=== PATIENT | male | born 1970 ===

== ENCOUNTER 2017-02-28 22:00 | Observation (INO) | payer MEDICAID ==
[2017-02-28 22:07] VITALS: BMI 60.5
--- NOTE | 2017-02-28 22:25 | ED PDOC ---
Arrival/HPI - General Chief Complaint: Abdominal Pain Time Seen by Provider: 02/28/17 22:20 Historian: Patient - History of Present Illness Narrative History of Present Illness (Text): 02/28/17 22:24 Dez Weiss is a 46 year old male, with no significant past medical history , who presents to the Emergency department complaining of RUQ pain radiating to right flank for 1 month. Patient states pain is constant and notes some nausea after eating. Patient states he was seen at [facility] weeks for similar complaint and admitted for further evaluation. Patient denies any fever, chills, chest pain, shortness of breath, vomiting, diarrhea, urinary symptoms, back pain, neck pain, headache, dizziness, or any other complaints. No PMD Time/Duration: Other (1 month) Symptom Onset: Gradual Symptom Course: Unchanged Activities at Onset: Rest, Light Context: Home Past Medical History - Provider Review Nursing Documentation Reviewed: Yes - Cardiac Hx Cardiac Disorders: No - Pulmonary Hx Respiratory Disorders: No - Neurological Hx Neurological Disorder: No - HEENT Hx HEENT Disorder: No - Renal Hx Renal Disorder: No - Endocrine/Metabolic Hx Endocrine Disorders: No - Hematological/Oncological Hx Blood Disorders: No - Integumentary Hx Dermatological Disorder: No - Musculoskeletal/Rheumatological Hx Musculoskeletal Disorders: No - Gastrointestinal Hx Gastrointestinal Disorders: Yes Other/Comment: acid reflux - Genitourinary/Gynecological Hx Genitourinary Disorders: No - Psychiatric Hx Psychophysiologic Disorder: No Hx Substance Use: Yes (marijuana) - Surgical History Hx Appendectomy: Yes Family/Social History - Physician Review Nursing Documentation Reviewed: Yes Family/Social History: No Known Family HX Smoking Status: Heavy Smoker > 10 Cigarettes Daily Hx Alcohol Use: Yes Frequency of alcohol use: Socially Hx Substance Use: Yes (marijuana) Allergies/Home Meds Allergies/Adverse Reactions: Allergies Penicillins Allergy (Verified 02/28/17 22:05) ANAPHYLAXIS shellfish derived Allergy (Verified 02/28/17 22:05) ANAPHYLAXIS Home Medications: Home Meds Medication Instructions Recorded Confirmed Omeprazole Magnesium [Prilosec Otc] 20 mg PO DAILY 02/28/17 02/28/17 Review of Systems - Physician Review All systems were reviewed & negative as marked: Yes - Review of Systems Constitutional: Normal. absent: Fevers Eyes: Normal ENT: Normal Respiratory: Normal. absent: SOB, Cough Cardiovascular: Normal. absent: Chest Pain Gastrointestinal: Abdominal Pain, Nausea. absent: Diarrhea, Vomiting Genitourinary Male: Normal. absent: Dysuria, Frequency, Hematuria, Urinary Output Changes Musculoskeletal: Back Pain. absent: Neck Pain Skin: Normal. absent: Rash Neurological: Normal. absent: Headache, Dizziness Endocrine: Normal Hemo/Lymphatic: Normal Psychiatric: Normal Physical Exam Vital Signs Reviewed: Yes Vital Signs Temp Pulse Resp BP Pulse Ox 03/01/17 01:15 88 18 136/88 95 02/28/17 22:06 98.9 F 109 H 22 98 Temperature: Afebrile Blood Pressure: Normal Pulse: Regular Respiratory Rate: Normal Appearance: Positive for: Well-Appearing, Non-Toxic, Comfortable Pain Distress: None Mental Status: Positive for: Alert and Oriented X 3 - Systems Exam Head: Present: Atraumatic, Normocephalic Pupils: Present: PERRL Extroacular Muscles: Present: EOMI Conjunctiva: Present: Normal Mouth: Present: Moist Mucous Membranes Neck: Present: Normal Range of Motion Respiratory/Chest: Present: Clear to Auscultation, Good Air Exchange. No: Respiratory Distress, Accessory Muscle Use Cardiovascular: Present: Regular Rate and Rhythm, Normal S1, S2. No: Murmurs Abdomen: Present: Tenderness (RUQ tenderness), Distention (Globus abdomen), Normal Bowel Sounds. No: Peritoneal Signs Upper Extremity: Present: Normal Inspection. No: Cyanosis, Edema Lower Extremity: Present: Normal Inspection. No: Edema Neurological: Present: GCS=15, CN II-XII Intact, Speech Normal Skin: Present: Warm, Dry, Normal Color. No: Rashes Psychiatric: Present: Alert, Oriented x 3, Normal Insight, Normal Concentration Medical Decision Making ED Course and Treatment: 02/28/17 22:24 Impression: 46 year old male complaining of RUQ pain radiating to right flank for 1 month. Plan: -- EKG -- CXR -- US Abdomen -- Labs, lipase -- IV fluids -- Toradol -- Reassess and disposition Progress Notes: 02/28/17 23:01 Reviewed EKG, NSR at [address]-segment elevations or depressions, no T-wave inversions, normal intervals. 02/28/17 23:56 Reviewed Chest X-ray, shows no active disease. 03/01/17 00:40 Reviewed sono, US Abdomen shows: Severely limited study related to patient body habitus. Liver dimensions as above, noting that these are statistically deemed unlikely, favor that measurements reflect artifact. Liver is increased in echogenicity, statistically most likely cause hepatic steatosis . No gallstones demonstrated. Unable to evaluate the common bile duct or pancreas. Favor that there is no hydronephrosis or stone of either kidney noting limitations. CT Abdomen and Pelvis with IV contrast ordered. 03/01/17 02:09 CT Abdomen and Pelvis shows: Please note that suboptimal contrast opacification and poor x-ray penetration greatly limit evaluation of the parenchymal organs, with absence of oral contrast limiting evaluation of the GI tract. Advise correlation for airspace disease at the right lung base. Kidneys as above, noting findings which are in the left kidney opposite the reported site of symptoms, please correlate for infection, there is incomplete evaluation of the findings on the present study. 03/01/17 02:15 Case discussed with medical lab technologist national van owner operator, who is aware and agrees with plan. House physician paged. 03/01/17 02:[address] Nava, who is aware and agrees with plan. Accepts pt in to hospitalist service. Pt will go to [facility] observation for intractable abdominal pain. - Lab Interpretations Lab Results: 02/28/17 22:43 02/28/17 22:43 Lab Results 02/28/17 22:43: WBC 9.8, RBC 5.32, Hgb 15.7, Hct 46.1, MCV 86.7, MCH 29.5, MCHC 34.1, RDW 13.9, Plt Count 369, MPV 10.3, Sodium 140, Potassium 4.0, Chloride 102 , Carbon Dioxide 28, Anion Gap 14, BUN 21, Creatinine 1.0, Est GFR ( Amer ) > 60, Est GFR (Non-Af Amer) > 60, Random Glucose 92, Calcium 9.1, Total Bilirubin 0.7, AST 37, ALT 67 H, Alkaline Phosphatase 119, Total Protein 8.0, Albumin 4.0, Globulin 4.0, Albumin/Globulin Ratio 1.0 L, Lipase 41 I have reviewed the lab results: Yes - RAD Interpretation Narrative RAD Interpretations (Text): Chest X-ray shows no active disease. US Abdomen shows: Limitations: There is a technologist note that the study was greatly limited by patient body habitus. Liver: The liver is measured at 33 x 21 cm, noting that these dimensions are statistically considered unlikely, it is favored that this is artifactual. The liver appears echogenic, statistically this is most likely related to hepatic steatosis Gallbladder: Limited evaluation of the gallbladder, no gallstones are identified. It was not possible to measure the gallbladder wall Common bile duct: The common bile duct could not be visualized with certainty. Pancreas: The pancreas was not visualized. Kidneys: The right kidney is documented with severe limitations, favored to measure approximately 10 x 6 x 7 cm, without evidence of hydronephrosis. Left kidney measures 12.5 x 6.4 x 6.7 cm with no hydronephrosis or stone identified. Spleen: Spleen is not enlarged, the study does not permit detailed evaluation for focal findings in the spleen. Aorta: Not evaluated noting limitations from body habitus Inferior vena cava:Not evaluated noting limitations from body habitus IMPRESSION: Severely limited study related to patient body habitus. Liver dimensions as above, noting that these are statistically deemed unlikely, favor that measurements reflect artifact. Liver is increased in echogenicity, statistically most likely cause hepatic steatosis . No gallstones demonstrated. Unable to evaluate the common bile duct or pancreas. Favor that there is no hydronephrosis or stone of either kidney noting limitations. Lower thorax: Air in the esophagus in keeping with reflux. Small hiatus hernia. Lung bases with patchy atelectatic changes right greater than left, cannot exclude some mild airspace disease of the right lower lobe although findings may reflect atelectasis. No pleural effusion is seen. Heart size does not appear enlarged. ABDOMEN: Liver: The liver is prominent, approximately 21 cm cephalocaudal. There is hepatic steatosis. Gallbladder and bile ducts: The gallbladder is mildly distended. No calcified stones. No ductal dilation. Pancreas: Unremarkable. No mass. No ductal dilation. Spleen: Unremarkable. No splenomegaly. Adrenals: Unremarkable. No mass. Kidneys and ureters: There is cortical irregularity of the left kidney suggested series 2 image 112, with focal abnormality measuring approximately 17 mm, differential includes pyelonephritis, cortical infarction, other pathology cannot be excluded on this limited study. extensive artifacts greatly limit evaluation for ureteral stone, noting that there is no hydronephrosis of either kidney. Stomach and bowel: The included portions of the GI tract shows scattered diverticuli, no findings to suggest bowel obstruction or acute diverticulitis within limits of the examination. Appendix: No findings to suggest acute appendicitis. PELVIS: Bladder: Configuration suggesting pelvic lipomatosis causing narrowing of the bladder No mass. Reproductive: There are scattered coarse calcifications in the prostate gland which measures 4.2 cm. ABDOMEN and PELVIS: Intraperitoneal space: Related to x-ray penetration, there is limited detail. Related to partial cutoff of the anterior abdominal wall on the images presented, there is some limitation to evaluation for free air. No significant fluid collection. Bones/joints: Bony structures without fracture comment degenerative spine changes are seen. No dislocation. Soft tissues: Unremarkable noting that they are incompletely imaged, please see above Vasculature: No abdominal aortic aneurysm. Atherosclerotic change most prominent at the origin of the left renal artery. Lymph nodes: Unremarkable. No enlarged lymph nodes. IMPRESSION: Please note that suboptimal contrast opacification and poor x-ray penetration greatly limit evaluation of the parenchymal organs, with absence of oral contrast limiting evaluation of the GI tract. Advise correlation for airspace disease at the right lung base. Kidneys as above, noting findings which are in the left kidney opposite the reported site of symptoms, please correlate for infection, there is incomplete evaluation of the findings on the present study. Radiology Orders: 02/28/17 22:25 CHEST PORTABLE [RAD] Stat ABDOMEN COMPLETE [US] Stat 03/01/17 00:40 ABD & PELVIS IV CONTRAST ONLY [CT] [employer]: ED Physician, Radiologist - EKG Interpretation EKG Interpretation (Text): EKG: Ordered, reviewed, and independently interpreted the EKG. Rate : 83 BPM Rhythm : NSR Interpretation : No ST-segment elevations or depressions, no T-wave inversions, normal intervals. Comparison : No previous EKG for comparison. Interpreted by ED Physician: Yes Type: 12 lead EKG - Medication Orders Current Medication Orders: Heparin Sodium (Porcine) (Heparin) 5,000 units SC Q12 EPHRAIM PRN Reason: Protocol Sodium Chloride (Sodium Chloride 0.9%) 1,000 mls @ 100 mls/hr IV .Q10H EPHRAIM Last Admin: 02/28/17 22:50 Dose: 100 MLS/HR eMAR Start Stop Document 02/28/17 22:50 SB (Rec: 02/28/17 22:50 SB [id number]) Intravenous Solution Start Date 02/28/17 Start Time 22:50 End Date 02/28/17 Morphine Sulfate (Morphine) 4 mg IVP STAT STA Stop: 03/01/17 02:22 Morphine Sulfate (Morphine) 2 mg IVP Q4H PRN PRN Reason: Pain, severe (8-10) Pantoprazole Sodium (Protonix Ec Tab) 40 mg PO ACB EPHRAIM Discontinued Medications Iohexol (Omnipaque 350 100 Ml) Confirm Administered Dose 350 mg .ROUTE .STK-MED ONE Stop: 03/01/17 01:06 Ketorolac Tromethamine (Toradol) 30 mg IVP ONCE ONE Stop: 02/28/17 22:27 Last Admin: 02/28/17 22:49 Dose: 30 MG IVP Administration Document 02/28/17 22:49 SB (Rec: 02/28/17 22:50 SB [id number]) Charges for Administration # of IVP Administrations 1 - Scribe Statement The provider has reviewed the documentation as recorded by the Maude Wong Provider Attestation: All medical record entries made by the Isaiiblove were at my direction and personally dictated by me. I have reviewed the chart and agree that the record accurately reflects my personal performance of the history, physical exam, medical decision making, and the department course for this patient. I have also personally directed, reviewed, and agree with the discharge instructions and disposition. Disposition/Present on Arrival - Present on Arrival Any Indicators Present on Arrival: No History of DVT/PE: No History of Uncontrolled Diabetes: No Urinary Catheter: No History of Decub. Ulcer: No History Surgical Site Infection Following: None - Disposition Have Diagnosis and Disposition been Completed?: Yes Diagnosis: Intractable abdominal pain Disposition: HOSPITALIZED Disposition Time: 02:25 Condition: STABLE
[2017-02-28] MEDS: Sodium Chloride 0.9% 1,000 ML IV SCH (22:50)
[2017-02-28 22:57] LABS: HEMATOCRIT 46.1 % (42.0-52.0); MEAN CELL VOLUME 86.7 fL (80.0-105.0); MEAN CORPUSCULAR HEMOGLOBIN 29.5 pg (25.0-35.0); MEAN CORPUSCULAR HGB CONC 34.1 g/dl (31.0-37.0); MEAN PLATELET VOLUME 10.3 fl (7.0-11.0); RED CELL DISTRIBUTION WIDTH 13.9 % (11.5-14.5); WHITE BLOOD COUNT 9.8 10^3/ul (4.5-11.0)
[2017-02-28 23:04] LABS: ALKALINE PHOSPHATASE 119 U/L (38-133); ALT/SGPT 67 U/L (7-56); AST/SGOT 37 U/L (15-59); BILIRUBIN,TOTAL 0.7 mg/dL (0.2-1.3); BLOOD UREA NITROGEN 21 mg/dL (7-21); CALCIUM 9.1 mg/dL (8.4-10.5); CARBON DIOXIDE 28 mmol/L (21-33); CHLORIDE 102 mmol/L (98-107); GFR AFRICAN-AMERICAN > 60; GLUCOSE,RANDOM 92 mg/dL (70-110); LIPASE 41 U/L (23-300); SODIUM 140 mmol/L (132-148)
--- NOTE | 2017-03-01 00:02 | US ---
EXAM: US Abdomen Complete CLINICAL HISTORY: 46 years old, male; Pain; Abdominal pain; Generalized TECHNIQUE: Real-time ultrasound of the abdomen (complete) with image documentation. EXAM DATE/TIME: Exam ordered 02/28/2017 10:25 PM COMPARISON: No relevant prior studies available. FINDINGS: Limitations: There is a technologist note that the study was greatly limited by patient body habitus. Liver: The liver is measured at 33 x 21 cm, noting that these dimensions are statistically considered unlikely, it is favored that this is artifactual. The liver appears echogenic, statistically this is most likely related to hepatic steatosis Gallbladder: Limited evaluation of the gallbladder, no gallstones are identified. It was not possible to measure the gallbladder wall Common bile duct: The common bile duct could not be visualized with certainty. Pancreas: The pancreas was not visualized. Kidneys: The right kidney is documented with severe limitations, favored to measure approximately 10 x 6 x 7 cm, without evidence of hydronephrosis. Left kidney measures 12.5 x 6.4 x 6.7 cm with no hydronephrosis or stone identified. Spleen: Spleen is not enlarged, the study does not permit detailed evaluation for focal findings in the spleen. Aorta: Not evaluated noting limitations from body habitus Inferior vena cava:Not evaluated noting limitations from body habitus IMPRESSION: Severely limited study related to patient body habitus. Liver dimensions as above, noting that these are statistically deemed unlikely, favor that measurements reflect artifact. Liver is increased in echogenicity, statistically most likely cause hepatic steatosis . No gallstones demonstrated. Unable to evaluate the common bile duct or pancreas. Favor that there is no hydronephrosis or stone of either kidney noting limitations.
[2017-03-01] MEDS ORDERED: Iohexol 350 MG/100 ML VIAL ONE (01:05)
--- NOTE | 2017-03-01 02:08 | CT ---
EXAM: CT Abdomen and Pelvis With Intravenous Contrast CLINICAL HISTORY: 46 years old, male; Pain; Abdominal pain; Flank; Right TECHNIQUE: Axial computed tomography images of the abdomen and pelvis with intravenous contrast. CONTRAST: 96 mL of OMNI 350 administered intravenously. EXAM DATE/TIME: Exam ordered 03/01/2017 12:40 AM COMPARISON: US - ABDOMEN COMPLETE 02/28/2017 11:35:22 PM FINDINGS: This study was protocoled on site and performed as per site directions, the images were subsequently sent for review by radiology. Intravenous contrast was administered, however there is suboptimal opacification. Related to x-ray penetration, there is limited detail. Related to partial cutoff of the anterior abdominal wall on the images presented, there is some limitation to evaluation for free air. Lower thorax: Air in the esophagus in keeping with reflux. Small hiatus hernia. Lung bases with patchy atelectatic changes right greater than left, cannot exclude some mild airspace disease of the right lower lobe although findings may reflect atelectasis. No pleural effusion is seen. Heart size does not appear enlarged. ABDOMEN: Liver: The liver is prominent, approximately 21 cm cephalocaudal. There is hepatic steatosis. Gallbladder and bile ducts: The gallbladder is mildly distended. No calcified stones. No ductal dilation. Pancreas: Unremarkable. No mass. No ductal dilation. Spleen: Unremarkable. No splenomegaly. Adrenals: Unremarkable. No mass. Kidneys and ureters: There is cortical irregularity of the left kidney suggested series 2 image 112, with focal abnormality measuring approximately 17 mm, differential includes pyelonephritis, cortical infarction, other pathology cannot be excluded on this limited study. extensive artifacts greatly limit evaluation for ureteral stone, noting that there is no hydronephrosis of either kidney. Stomach and bowel: The included portions of the GI tract shows scattered diverticuli, no findings to suggest bowel obstruction or acute diverticulitis within limits of the examination. Appendix: No findings to suggest acute appendicitis. PELVIS: Bladder: Configuration suggesting pelvic lipomatosis causing narrowing of the bladder No mass. Reproductive: There are scattered coarse calcifications in the prostate gland which measures 4.2 cm. ABDOMEN and PELVIS: Intraperitoneal space: Related to x-ray penetration, there is limited detail. Related to partial cutoff of the anterior abdominal wall on the images presented, there is some limitation to evaluation for free air. No significant fluid collection. Bones/joints: Bony structures without fracture comment degenerative spine changes are seen. No dislocation. Soft tissues: Unremarkable noting that they are incompletely imaged, please see above Vasculature: No abdominal aortic aneurysm. Atherosclerotic change most prominent at the origin of the left renal artery. Lymph nodes: Unremarkable. No enlarged lymph nodes. IMPRESSION: Please note that suboptimal contrast opacification and poor x-ray penetration greatly limit evaluation of the parenchymal organs, with absence of oral contrast limiting evaluation of the GI tract. Advise correlation for airspace disease at the right lung base. Kidneys as above, noting findings which are in the left kidney opposite the reported site of symptoms, please correlate for infection, there is incomplete evaluation of the findings on the present study.
[2017-03-01] MEDS ORDERED: Morphine 4 mg/ml ISec IVP STA (02:21)
[2017-03-01] MEDS ORDERED: Morphine 2 mg/ml ISec IVP PRN (02:21)
--- NOTE | 2017-03-01 02:23 | CP.PCM.HP ---
<Lety Fernandez - Last Filed: 03/01/17 02:52> History of Present Illness - History of Present Illness History of Present Illness: This is a 46Y morbidly obese M with PMH of kidney stones who came to the ED for R sided flank pain for 1 month. He reports 2 weeks ago he went to [facility] [place] and was d /c with Percocet, but they did not find a diagnosis. He reports the pain is intermittent pressure that is worse with movement, coughing and sneezing. He has not had this pain before. Nothing makes the pain better. He denies having hematuria, dysuria, CP, SOB, n/v/d, numbness/tingling, fever or chills. Of note , patient does report waking up in the middle of the night from not breathing. He is homeless, so no one can report if he snores. PMH: Kidney stones PSH: Appendectomy (20yrs ago) Home meds: None All: Penicillin and shellfish (both anaphylaxis) SH: Smokes 1ppd x 20yrs, smokes marijuana, denies EtOH use FH: Father- of gastric cancer PMD: None Present on Admission - Present on Admission Any Indicators Present on Admission: No Review of Systems - Review of Systems Review of Systems: As per HPI Past Patient History - Past Social History Smoking Status: Heavy Smoker > 10 Cigarettes Daily Alcohol: None Drugs: Cannabis Home Situation {Lives}: Homeless - CARDIAC Hx Cardiac Disorders: No - PULMONARY Hx Respiratory Disorders: No - NEUROLOGICAL Hx Neurological Disorder: No - HEENT Hx HEENT Problems: No - RENAL Hx Chronic Kidney Disease: No - ENDOCRINE/METABOLIC Hx Endocrine Disorders: No - HEMATOLOGICAL/ONCOLOGICAL Hx Blood Disorders: No - INTEGUMENTARY Hx Dermatological Problems: No - MUSCULOSKELETAL/RHEUMATOLOGICAL Hx Musculoskeletal Disorders: No - GASTROINTESTINAL Hx Gastrointestinal Disorders: Yes Other/Comment: acid reflux - GENITOURINARY/GYNECOLOGICAL Hx Genitourinary Disorders: No - PSYCHIATRIC Hx Psychophysiologic Disorder: No Hx Substance Use: Yes (marijuana) - SURGICAL HISTORY Hx Appendectomy: Yes Meds Allergies/Adverse Reactions: Allergies Allergy/AdvReac Type Severity Reaction Status Date / Time Penicillins Allergy ANAPHYLAXIS Verified 02/28/17 22:05 shellfish derived Allergy ANAPHYLAXIS Verified 02/28/17 22:05 Physical Exam - Constitutional Appears: No Acute Distress Additional comments: Obese - Head Exam Head Exam: ATRAUMATIC, NORMAL INSPECTION, NORMOCEPHALIC - Eye Exam Eye Exam: Normal appearance Pupil Exam: NORMAL ACCOMODATION - ENT Exam ENT Exam: Mucous Membranes Moist - Neck Exam Neck exam: Positive for: Normal Inspection - Respiratory Exam Respiratory Exam: Clear to Auscultation Bilateral, NORMAL BREATHING PATTERN. absent: Rales, Rhonchi, Wheezes - Cardiovascular Exam Cardiovascular Exam: REGULAR RHYTHM, +S1, +S2. absent: Gallop, Rubs, Systolic Murmur - GI/Abdominal Exam GI & Abdominal Exam: Normal Bowel Sounds, Soft. absent: Mass, Rebound, Rigid, Tenderness - Extremities Exam Extremities exam: Positive for: pedal edema. Negative for: calf tenderness Additional comments: +2 pitting edema - Back Exam Back exam: NORMAL INSPECTION, tenderness (R flank to palpation ). absent: CVA tenderness (L), CVA tenderness (R) - Neurological Exam Neurological exam: Alert, CN II-XII Intact, Oriented x3 - Psychiatric Exam Psychiatric exam: Normal Affect, Normal Mood - Skin Skin Exam: Dry, Intact, Normal Color, Warm Results - Vital Signs Recent Vital Signs: Last Vital Signs Temp 98.9 F 02/28/17 22:06 Pulse 88 03/01/17 01:15 Resp 18 03/01/17 01:15 BP 136/88 03/01/17 01:15 Pulse Ox 95 03/01/17 01:15 - Labs Result Diagrams: 02/28/17 22:43 02/28/17 22:43 Labs: Laboratory Results - last 24 hr 02/28/17 22:43 WBC 9.8 RBC 5.32 Hgb 15.7 Hct 46.1 MCV 86.7 MCH 29.5 MCHC 34.1 RDW 13.9 Plt Count 369 MPV 10.3 Sodium 140 Potassium 4.0 Chloride 102 Carbon Dioxide 28 Anion Gap 14 BUN 21 Creatinine 1.0 Est GFR ( Amer) > 60 Est GFR (Non-Af Amer) > 60 Random Glucose 92 Calcium 9.1 Total Bilirubin 0.7 AST 37 ALT 67 H Alkaline Phosphatase 119 Total Protein 8.0 Albumin 4.0 Globulin 4.0 Albumin/Globulin Ratio 1.0 L Lipase 41 - EKG Data EKG Interpreted by: ER Physician EKG shows normal: Sinus rhythm Rate: Normal Assessment & Plan - Assessment and Plan (Free Text) Assessment: This is a 46Y morbidly obese male with PMH of kidney stones admitted for R sided flank pain. Plan: 1. R flank pain - r/o kidney stones, may be musculoskeletal - CT abd/pelvis showed some cortical irregularity on the L kidney, no hydronephrosis or stones seen. - Abdominal U/S was limited study due to body habitus. Hepatic steatosis. No hydronephrosis. No gallstones seen in GB, but not able to identify common bile duct or pancreas - Will check U/A and culture - will check lactate to r/o ischemia - Morphine prn pain 2. Morbid obesity - Will check HgbA1c and lipid panel 3. Sleep apnea - Recommend outpatient sleep study 4. Nicotine dependence - counseled on smoking cessation GI ppx: Protonix DVT ppx: Heparin SC Case seen, reviewed and discussed with attending. Beto Fernandez PGY1 - Date & Time Date: 03/01/17 Time: 02:23 <Aureliano Nava - Last Filed: 03/01/17 04:52> Results - Vital Signs Recent Vital Signs: Last Vital Signs Temp 98.9 F 02/28/17 22:06 Pulse 82 03/01/17 03:00 Resp 18 03/01/17 03:00 BP 128/62 03/01/17 03:00 Pulse Ox 95 03/01/17 03:00 - Labs Result Diagrams: 02/28/17 22:43 02/28/17 22:43 Attending/Attestation - Attestation I have personally seen and examined this patient.: Yes I have fully participated in the care of the patient.: Yes I have reviewed all pertinent clinical information: Yes Notes (Text): 03/01/17 04:51 Patient was seen when he was in the ER bed # 7. Agree with history, physical examination , assessment and plan.
[2017-03-01] MEDS ORDERED: Pantoprazole 40 mg EC Tab PO SCH (07:30)
[2017-03-01 08:03] LABS: CHOLESTEROL 155 mg/dL (130-200)
--- NOTE | 2017-03-01 08:28 | RAD ---
HISTORY: abdominal pain COMPARISON: No prior. FINDINGS: LUNGS: No active pulmonary disease. PLEURA: No significant pleural effusion identified, no pneumothorax apparent. CARDIOVASCULAR: Normal. OSSEOUS STRUCTURES: No significant abnormalities. VISUALIZED UPPER ABDOMEN: Normal. OTHER FINDINGS: None. IMPRESSION: No active disease.
[2017-03-01] MEDS: Sodium Chloride 0.9% 1,000 ML IV SCH ×2 (09:46→17:52)
[2017-03-01 12:43] LABS: URINE BILIRUBIN NEGATIVE (NEGATIVE); URINE BLOOD TRACE-INTACT (NEGATIVE); URINE GLUCOSE (UA) NEGATIVE (NEGATIVE); URINE KETONE NEGATIVE (NEGATIVE); URINE LEUKOCYTE ESTERASE NEGATIVE Leu/uL (NEGATIVE); URINE PROTEIN TRACE mg/dL (<30 mg/dL); URINE UROBILINOGEN 0.2 E.U./dL (<1 E.U./dL)
[2017-03-01 12:47] LABS: URINE APPEARANCE CLEAR (CLEAR); URINE COLOR YELLOW (YELLOW)
[2017-03-01 12:51] LABS: URINE BACTERIA MOD (NEG); URINE EPITHELIAL CELLS 0 - 2 /hpf (0-5); URINE WBC 0 - 2 /hpf (0-6)
[2017-03-01] MEDS ORDERED: Azithromycin 500MG/NS 250ml 250 ML IVPB STA (15:03)
--- NOTE | 2017-03-01 15:32 | CARD ---
APPROVED REPORT EKG Measurement Heart [id number] <Conclusion> Normal sinus rhythm Normal ECG
[2017-03-02 07:39] LABS: ADD MANUAL DIFF? NO
[2017-03-02 07:46] LABS: BASO # 0.01 K/mm3 (0.0-2.0); BASO % 0.2 % (0.0-3.0); EOS # 0.2 (0.0-0.7); EOS % 2.8 % (1.5-5.0); GRAN # 4.31 (1.4-6.5); GRAN % 67.8 % (50.0-68.0); HEMATOCRIT 43.4 % (42.0-52.0); LYMPH # 1.1 (1.2-3.4); LYMPH % 17.3 % (22.0-35.0); MEAN CELL VOLUME 87.5 fL (80.0-105.0); MEAN CORPUSCULAR HEMOGLOBIN 28.4 pg (25.0-35.0); MEAN CORPUSCULAR HGB CONC 32.5 g/dl (31.0-37.0); MEAN PLATELET VOLUME 10.1 fl (7.0-11.0); MONO # 0.8 (0.1-0.6); MONO % 11.9 % (1.0-6.0); PLATELET COUNT 327 10^3/uL (120.0-450.0); RED CELL DISTRIBUTION WIDTH 13.9 % (11.5-14.5); WHITE BLOOD COUNT 6.4 10^3/ul (4.5-11.0)
[2017-03-02 07:57] LABS: ALKALINE PHOSPHATASE 105 U/L (38-133); ALT/SGPT 56 U/L (7-56); AST/SGOT 27 U/L (15-59); BILIRUBIN,TOTAL 0.5 mg/dL (0.2-1.3); BLOOD UREA NITROGEN 12 mg/dL (7-21); CALCIUM 8.4 mg/dL (8.4-10.5); CARBON DIOXIDE 31 mmol/L (21-33); CHLORIDE 102 mmol/L (95-110); GFR AFRICAN-AMERICAN > 60; GLUCOSE,RANDOM 96 mg/dL (70-110); POTASSIUM 4.1 mmol/L (3.6-5.0); SODIUM 142 mmol/L (132-148); TOTAL PROTEIN 7.1 g/dL (5.8-8.3)
--- NOTE | 2017-03-02 13:28 | CP.PCM.DIS ---
<Patrice Jefferson - Last Filed: 03/02/17 15:23> Provider - Provider Date of Admission: 03/01/17 02:23 Attending physician: Emperatriz Carmona MD Time Spent in preparation of Discharge (in minutes): 45 Hospital Course - Lab Results Lab Results: Most Recent Lab Values WBC 6.4 10^3/ul (4.5-11.0) D 03/02/17 07:30 RBC 4.96 10^6/uL (3.5-6.1) 03/02/17 07:30 Hgb 14.1 gm/dL (14.0-18.0) 03/02/17 07:30 Hct 43.4 % (42.0-52.0) 03/02/17 07:30 MCV 87.5 fL (80.0-105.0) 03/02/17 07:30 MCH 28.4 pg (25.0-35.0) 03/02/17 07:30 MCHC 32.5 g/dl (31.0-37.0) 03/02/17 07:30 RDW 13.9 % (11.5-14.5) 03/02/17 07:30 Plt Count 327 10^3/uL (120.0-450.0) 03/02/17 07:30 MPV 10.1 fl (7.0-11.0) 03/02/17 07:30 Gran % 67.8 % (50.0-68.0) 03/02/17 07:30 Lymph % (Auto) 17.3 % (22.0-35.0) L 03/02/17 07:30 Hardeman % (Auto) 11.9 % (1.0-6.0) H 03/02/17 07:30 Eos % (Auto) 2.8 % (1.5-5.0) 03/02/17 07:30 Baso % (Auto) 0.2 % (0.0-3.0) 03/02/17 07:30 Gran # 4.31 (1.4-6.5) 03/02/17 07:30 Lymph # 1.1 (1.2-3.4) L 03/02/17 07:30 [place]eman # 0.8 (0.1-0.6) H 03/02/17 07:30 Eos # 0.2 (0.0-0.7) 03/02/17 07:30 Baso # 0.01 K/mm3 (0.0-2.0) 03/02/17 07:30 Sodium 142 mmol/L (132-148) 03/02/17 07:30 Potassium 4.1 mmol/L (3.6-5.0) 03/02/17 07:30 Chloride 102 mmol/L (95-110) 03/02/17 07:30 Carbon Dioxide 31 mmol/L (21-33) 03/02/17 07:30 Anion Gap 13 (10-20) 03/02/17 07:30 BUN 12 mg/dL (7-21) 03/02/17 07:30 Creatinine 0.9 mg/dL (0.5-1.4) 03/02/17 07:30 Est GFR ( Amer) > 60 03/02/17 07:30 Est GFR (Non-Af Amer) > 60 03/02/17 07:30 Random Glucose 96 mg/dL (70-110) 03/02/17 07:30 Hemoglobin A1c 6.4 % (4.2-6.5) 02/28/17 22:43 Lactic Acid 1.1 mmol/L (0.7-2.1) 03/01/17 07:40 Calcium 8.4 mg/dL (8.4-10.5) 03/02/17 07:30 Total Bilirubin 0.5 mg/dL (0.2-1.3) 03/02/17 07:30 AST 27 U/L (15-59) 03/02/17 07:30 ALT 56 U/L (7-56) 03/02/17 07:30 Alkaline Phosphatase 105 U/L (38-133) 03/02/17 07:30 Total Protein 7.1 g/dL (5.8-8.3) 03/02/17 07:30 Albumin 3.6 g/dL (3.0-4.8) 03/02/17 07:30 Globulin 3.5 gm/dL 03/02/17 07:30 Albumin/Globulin Ratio 1.0 (1.1-1.8) L 03/02/17 07:30 Triglycerides 196 mg/dL (35-160) H 03/01/17 07:00 Cholesterol 155 mg/dL (130-200) 03/01/17 07:00 LDL Cholesterol Direct 87 mg/dL (0-129) 03/01/17 07:00 HDL Cholesterol 32 mg/dL (29-60) 03/01/17 07:00 Lipase 41 U/L (23-300) 02/28/17 22:43 Urine Color Yellow (YELLOW) 03/01/17 12:25 Urine Appearance Clear (CLEAR) 03/01/17 12:25 Urine pH 6.0 (4.7-8.0) 03/01/17 12:25 Ur Specific [place] 1.025 (1.005-1.035) 03/01/17 12:25 Urine Protein Trace mg/dL (<30 mg/dL) H 03/01/17 12:25 Urine Glucose (UA) Negative mg/dL (NEGATIVE) 03/01/17 12:25 Urine Ketones Negative mg/dL (NEGATIVE) 03/01/17 12:25 Urine Blood Trace-intact (NEGATIVE) H 03/01/17 12:25 Urine Nitrate Negative (NEGATIVE) 03/01/17 12:25 Urine Bilirubin Negative (NEGATIVE) 03/01/17 12:25 Urine Urobilinogen 0.2 E.U./dL (<1 E.U./dL) 03/01/17 12:25 Ur Leukocyte Esterase Negative Basilio/uL (NEGATIVE) 03/01/17 12:25 Urine RBC 1 - 3 /hpf (0-2) 03/01/17 12:25 Urine WBC 0 - 2 /hpf (0-6) 03/01/17 12:25 Ur Epithelial Cells 0 - 2 /hpf (0-5) 03/01/17 12:25 Urine Bacteria Mod (NEG) 03/01/17 12:25 - Hospital Course Hospital Course: HPI: This is a 46Y morbidly obese M with PMH of kidney stones who came to the ED for R sided flank pain for 1 month. He reports 2 weeks ago he went to [facility] [place] and was d/c with Percocet, but they did not find a diagnosis. He reports the pain is intermittent pressure that is worse with movement, coughing and sneezing. He has not had this pain before. Nothing makes the pain better. He denies having hematuria, dysuria, CP, SOB, n/v/d, numbness/tingling, fever or chills. Of note, patient does report waking up in the middle of the night from not breathing. He is homeless, so no one can report if he snores. Patient is a 46 y/o M who presented with complaint of right sided flank pain. An initial EKG performed showed NSR at [address] abd/pelvis showed some cortical irregularity on the L kidney, no hydronephrosis or stones seen, patchy atelectasis in lung bases. Abdominal U/S was limited study due to body habitus, hepatic steatosis, no hydronephrosis, no gallstones seen in gallbladder, but not able to identify common bile duct or pancreas. Urinalysis was negative and he remained afebrile without leukocytosis. Chest x-ray showed no active disease process. Patient's pain controlled with Toradol and Morphine. He was started on azithromycin due to airway disease. He was placed on Flexeril which alleviated his pain. He was determined to have somatic dysfunction in the rib cage and was shown stretching exercises. He was determined medically stable for discharge. He was advised to: follow up with your primary care physician within a week; complete your course of antibiotics; do not drive or operate machinary while taking Flexeril; avoid alcohol, tobacco, or drug use; get daily exercise and eat a low calorie diet; continue shoulder and back stretching exercises; will need to arrange an outpatient sleep study; if your condition worsens or new symptoms arise, please return to the emergency room. He verbalized understanding and was discharged with prescriptions for Flexeril, Azithromycin, and Naproxen. This is a brief summary of the patient's stay at this facility, for more details see patient's full chart. - Date & Time of H&P Date of H&P: 03/01/17 Time of H&P: 02:20 Discharge Exam - Head Exam Head Exam: ATRAUMATIC, NORMAL INSPECTION, NORMOCEPHALIC - Eye Exam Eye Exam: EOMI, Normal appearance, PERRL Pupil Exam: NORMAL ACCOMODATION, PERRL - ENT Exam ENT Exam: Mucous Membranes Moist. absent: Normal Oropharynx (poor dentition) - Neck Exam Additional comments: fat - Respiratory Exam Respiratory Exam: NORMAL BREATHING PATTERN. absent: Rales, Rhonchi, Wheezes - Cardiovascular Exam Cardiovascular Exam: REGULAR RHYTHM, +S1, +S2. absent: Gallop, Rubs, Systolic Murmur - GI/Abdominal Exam GI & Abdominal Exam: Normal Bowel Sounds, Soft, Tenderness (right rib9 and 10). absent: Distended, Guarding, Unremarkable (obese) - Extremities Exam Extremities exam: normal capillary refill, normal inspection, pedal pulses present - Back Exam Back exam: NORMAL INSPECTION, tenderness (right ribs 9-10). absent: rash noted - Neurological Exam Neurological exam: Alert, CN II-XII Intact, Oriented x3, Reflexes Normal - Psychiatric Exam Psychiatric exam: Normal Affect, Normal Mood - Skin Skin Exam: Dry, Intact, Normal Color Discharge Plan - Discharge Medications Prescriptions: Cyclobenzaprine [Flexeril] 5 mg PO TID #15 tab Naproxen Sodium [Naproxen Sodium ER] 500 mg PO DAILY #15 tbmp.24hr Azithromycin [Z-Jonny] 250 mg PO DAILY #6 tab - Follow Up Plan Condition: GOOD Disposition: HOME/ ROUTINE Instructions: How to Stop Smoking (DC), Calorie Counting Diet (GEN), Abdominal Pain (ED) Additional Instructions: You are medically stable for discharge. Please follow up with your primary care physician within a week. You are discharged with prescriptions for Flexeril, Azithromycin, and Naproxen. Please complete your course of antibiotics. Please do not drive or operate [employer] while taking Flexeril. Please avoid alcohol, tobacco, or drug use. Continue to get daily exercise and eat a low calorie diet. Continue shoulder and back stretching exercises. You will need to arrange an outpatient sleep study. If your condition worsens or new symptoms arise, please return to the emergency room. <Emperatriz Carmona - Last Filed: 03/02/17 16:00> Provider - Provider Date of Admission: 03/01/17 02:23 Attending physician: Emperatriz Carmona MD Hospital Course - Lab Results Lab Results: Most Recent Lab Values WBC 6.4 10^3/ul (4.5-11.0) D 03/02/17 07:30 RBC 4.96 10^6/uL (3.5-6.1) 03/02/17 07:30 Hgb 14.1 gm/dL (14.0-18.0) 03/02/17 07:30 Hct 43.4 % (42.0-52.0) 03/02/17 07:30 MCV 87.5 fL (80.0-105.0) 03/02/17 07:30 MCH 28.4 pg (25.0-35.0) 03/02/17 07:30 MCHC 32.5 g/dl (31.0-37.0) 03/02/17 07:30 RDW 13.9 % (11.5-14.5) 03/02/17 07:30 Plt Count 327 10^3/uL (120.0-450.0) 03/02/17 07:30 MPV 10.1 fl (7.0-11.0) 03/02/17 07:30 Gran % 67.8 % (50.0-68.0) 03/02/17 07:30 Lymph % (Auto) 17.3 % (22.0-35.0) L 03/02/17 07:30 Hardeman % (Auto) 11.9 % (1.0-6.0) H 03/02/17 07:30 Eos % (Auto) 2.8 % (1.5-5.0) 03/02/17 07:30 Baso % (Auto) 0.2 % (0.0-3.0) 03/02/17 07:30 Gran # 4.31 (1.4-6.5) 03/02/17 07:30 Lymph # 1.1 (1.2-3.4) L 03/02/17 07:30 [place]eman # 0.8 (0.1-0.6) H 03/02/17 07:30 Eos # 0.2 (0.0-0.7) 03/02/17 07:30 Baso # 0.01 K/mm3 (0.0-2.0) 03/02/17 07:30 Sodium 142 mmol/L (132-148) 03/02/17 07:30 Potassium 4.1 mmol/L (3.6-5.0) 03/02/17 07:30 Chloride 102 mmol/L (95-110) 03/02/17 07:30 Carbon Dioxide 31 mmol/L (21-33) 03/02/17 07:30 Anion Gap 13 (10-20) 03/02/17 07:30 BUN 12 mg/dL (7-21) 03/02/17 07:30 Creatinine 0.9 mg/dL (0.5-1.4) 03/02/17 07:30 Est GFR ( Amer) > 60 03/02/17 07:30 Est GFR (Non-Af Amer) > 60 03/02/17 07:30 Random Glucose 96 mg/dL (70-110) 03/02/17 07:30 Hemoglobin A1c 6.4 % (4.2-6.5) 02/28/17 22:43 Lactic Acid 1.1 mmol/L (0.7-2.1) 03/01/17 07:40 Calcium 8.4 mg/dL (8.4-10.5) 03/02/17 07:30 Total Bilirubin 0.5 mg/dL (0.2-1.3) 03/02/17 07:30 AST 27 U/L (15-59) 03/02/17 07:30 ALT 56 U/L (7-56) 03/02/17 07:30 Alkaline Phosphatase 105 U/L (38-133) 03/02/17 07:30 Total Protein 7.1 g/dL (5.8-8.3) 03/02/17 07:30 Albumin 3.6 g/dL (3.0-4.8) 03/02/17 07:30 Globulin 3.5 gm/dL 03/02/17 07:30 Albumin/Globulin Ratio 1.0 (1.1-1.8) L 03/02/17 07:30 Triglycerides 196 mg/dL (35-160) H 03/01/17 07:00 Cholesterol 155 mg/dL (130-200) 03/01/17 07:00 LDL Cholesterol Direct 87 mg/dL (0-129) 03/01/17 07:00 HDL Cholesterol 32 mg/dL (29-60) 03/01/17 07:00 Lipase 41 U/L (23-300) 02/28/17 22:43 Urine Color Yellow (YELLOW) 03/01/17 12:25 Urine Appearance Clear (CLEAR) 03/01/17 12:25 Urine pH 6.0 (4.7-8.0) 03/01/17 12:25 Ur Specific [place] 1.025 (1.005-1.035) 03/01/17 12:25 Urine Protein Trace mg/dL (<30 mg/dL) H 03/01/17 12:25 Urine Glucose (UA) Negative mg/dL (NEGATIVE) 03/01/17 12:25 Urine Ketones Negative mg/dL (NEGATIVE) 03/01/17 12:25 Urine Blood Trace-intact (NEGATIVE) H 03/01/17 12:25 Urine Nitrate Negative (NEGATIVE) 03/01/17 12:25 Urine Bilirubin Negative (NEGATIVE) 03/01/17 12:25 Urine Urobilinogen 0.2 E.U./dL (<1 E.U./dL) 03/01/17 12:25 Ur Leukocyte Esterase Negative Basilio/uL (NEGATIVE) 03/01/17 12:25 Urine RBC 1 - 3 /hpf (0-2) 03/01/17 12:25 Urine WBC 0 - 2 /hpf (0-6) 03/01/17 12:25 Ur Epithelial Cells 0 - 2 /hpf (0-5) 03/01/17 12:25 Urine Bacteria Mod (NEG) 03/01/17 12:25 Attending/Attestation - Attestation I have personally seen and examined this patient.: Yes I have fully participated in the care of the patient.: Yes I have reviewed all pertinent clinical information, including history, physical exam and plan: Yes Notes (Text): 03/02/17 15:55 46 year old obese male with past medical history of kidney stones and obesity who presented with right sided abdominal pain. US abdomen was limited but showed no gallstones. CT abd/pelvis right aerspace disease and some cortical irregularity on the left kidney. UA was negative. He was started on azithromycin, motrin and flexeril with some improvement of symptoms. He was counselled on diet and exercise. Recommended outpatient sleep study. Patient is discharged today to follow up with his pmd. Counselled on smoking abstinence. Emperatriz Carmona MD Hospitalist.
[2017-03-02 16:33] VITALS: BP 163/90; PULSE 76; RESP 20; TEMP 98.7; O2SAT 91
== END 2017-03-02 16:43 | disposition home or self-care (01) ==
LOC: ED 22:00 → ERH 03-01 02:23 → MERGE 03-01 02:23 → ERH 03-01 02:40 → 5RNO 03-01 03:31
PROVIDERS: ADMIT Hospitalist; ATTEND Internal Medicine
DX: R10.11 Right upper quadrant pain (principal); E66.01 Morbid (severe) obesity due to excess calories; Z68.44 Body mass index [BMI] 60.0-69.9, adult; K44.9 Diaphragmatic hernia without obstruction or gangrene; F17.210 Nicotine dependence, cigarettes, uncomplicated; F12.90 Cannabis use, unspecified, uncomplicated; G47.30 Sleep apnea, unspecified; Z59.0 Homelessness; M99.09 Segmental and somatic dysfunction of abdomen and other regions; Z90.49 Acquired absence of other specified parts of digestive tract; K76.0 Fatty (change of) liver, not elsewhere classified; Z87.442 Personal history of urinary calculi; Z80.0 Family history of malignant neoplasm of digestive organs
CPT/HCPCS: 36415; 71010; 74177; 76700; 80053; 80061; 81001; 83036; 83605; 83690; 85025; 85027; 87086; 93005; 96374; 99284; G0378; J0456; J1644; J1885; J2270; J7040; Q9967

== ENCOUNTER 2017-04-24 19:01 | Emergency (ER) | payer MEDICAID ==
[2017-04-24 19:01] VITALS: BMI 60.5
[2017-04-24 19:22] VITALS: TEMP 98.7
[2017-04-24 20:29] LABS: ADD MANUAL DIFF? NO
[2017-04-24 20:37] LABS: BASO # 0.02 K/mm3 (0.0-2.0); BASO % 0.2 % (0.0-3.0); EOS # 0.2 (0.0-0.7); EOS % 2.2 % (1.5-5.0); GRAN # 6.89 (1.4-6.5); GRAN % 73.6 % (50.0-68.0); HEMATOCRIT 45.2 % (42.0-52.0); LYMPH # 1.4 (1.2-3.4); LYMPH % 15.2 % (22.0-35.0); MEAN CELL VOLUME 88.5 fL (80.0-105.0); MEAN CORPUSCULAR HEMOGLOBIN 29.2 pg (25.0-35.0); MEAN PLATELET VOLUME 10.9 fl (7.0-11.0); MONO # 0.8 (0.1-0.6); MONO % 8.8 % (1.0-6.0); PLATELET COUNT 312 10^3/uL (120.0-450.0); RED CELL DISTRIBUTION WIDTH 13.7 % (11.5-14.5); WHITE BLOOD COUNT 9.4 10^3/ul (4.5-11.0)
--- NOTE | 2017-04-24 20:38 | ED PDOC ---
Arrival/HPI - General Chief Complaint: Abdominal Pain Time Seen by Provider: 04/24/17 19:14 - History of Present Illness Narrative History of Present Illness (Text): 04/24/17 20:31 47 y/o M w/ PMHx of GERD and nephrolithiasis presents to the ED c/o RUQ abd pain. Pt states pain has been present for a few weeks but has been getting worse. Pt has never had this pain before. Pain is constant w/ no radiation. Nothing makes pain better or worse. Pain unchanged w/ PO intake. Pt also admits to loose stool as well as increased urination and polydipsia and a 15lb weight loss. Pt denies F/C, N/V, CP, SOB. Past Medical History - Provider Review Nursing Documentation Reviewed: Yes - Infectious Disease Hx of Infectious Diseases: None - Cardiac Hx Cardiac Disorders: No - Pulmonary Hx Respiratory Disorders: No - Neurological Hx Neurological Disorder: No - HEENT Hx HEENT Disorder: No - Renal Hx Renal Disorder: No - Endocrine/Metabolic Hx Endocrine Disorders: No - Hematological/Oncological Hx Blood Disorders: No - Integumentary Hx Dermatological Disorder: No - Musculoskeletal/Rheumatological Hx Falls: No - Gastrointestinal Hx Gastroesophageal Reflux: Yes - Genitourinary/Gynecological Hx Genitourinary Disorders: No - Psychiatric Hx Psychophysiologic Disorder: No Hx Substance Use: Yes (marijuana) - Surgical History Hx Appendectomy: Yes - Anesthesia Hx Anesthesia: Yes Hx Anesthesia Reactions: No Family/Social History - Physician Review Nursing Documentation Reviewed: Yes Family/Social History: No Known Family HX Smoking Status: Heavy Smoker > 10 Cigarettes Daily Hx Alcohol Use: No Hx Substance Use: Yes (marijuana) Allergies/Home Meds Allergies/Adverse Reactions: Allergies Penicillins Allergy (Verified 04/24/17 19:18) ANAPHYLAXIS shellfish derived Allergy (Verified 04/24/17 19:18) ANAPHYLAXIS Home Medications: Home Meds Medication Instructions Recorded Confirmed Omeprazole Magnesium [Prilosec Otc] 20 mg PO DAILY 02/28/17 04/24/17 Review of Systems - Physician Review All systems were reviewed & negative as marked: Yes - Review of Systems Constitutional: absent: Fevers Respiratory: absent: SOB Physical Exam Vital Signs Reviewed: Yes Vital Signs Temp Pulse Resp BP Pulse Ox 04/24/17 21:17 90 20 132/79 96 04/24/17 19:22 98.7 F 92 H 19 130/82 96 Temperature: Afebrile Blood Pressure: Normal Pulse: Regular Respiratory Rate: Normal Appearance: Positive for: Non-Toxic, Comfortable Pain Distress: Mild Mental Status: Positive for: Alert and Oriented X 3 - Systems Exam Head: Present: Atraumatic, Normocephalic Pupils: Present: PERRL Extroacular Muscles: Present: EOMI Conjunctiva: Present: Injected Mouth: Present: Moist Mucous Membranes Neck: Present: Normal Range of Motion Respiratory/Chest: Present: Clear to Auscultation, Good Air Exchange. No: Respiratory Distress, Accessory Muscle Use Cardiovascular: Present: Regular Rate and Rhythm, Normal S1, S2, Muffled. No: Murmurs Abdomen: Present: Tenderness (RUQ), Distention (obese), Other (positive Chambers' s sigh). No: Normal Bowel Sounds, Peritoneal Signs, Rebound, Guarding, [place] Tender Upper Extremity: Present: Normal Inspection Lower Extremity: Present: Edema (2+ pre-tibial pitting edema B/L) Neurological: Present: GCS=15, Speech Normal Skin: Present: Warm, Dry, Normal Color Psychiatric: Present: Alert, Oriented x 3, Normal Insight, Normal Concentration Medical Decision Making ED Course and Treatment: 04/24/17 20:40 47 y/o M w/ RUQ pain - Toradol - accucheck - CBC, CMP, Lipase - UA - Abd US - CT A/P w/o contrast - reassess and dispo 04/24/17 22:49 Pt requesting food. Explained that he cannot eat until CT scans results come back. - Lab Interpretations Lab Results: 04/24/17 20:10 04/24/17 20:10 Lab Results 04/24/17 20:17: Urine Color Yellow, Urine Appearance Clear, Urine pH 6.0, Ur Specific [place] >= 1.030, Urine Protein 30 H, Urine Glucose (UA) Negative, Urine Ketones Trace H, Urine Blood Trace-intact H, Urine Nitrate Negative, Urine Bilirubin Negative, Urine Urobilinogen 0.2, Ur Leukocyte Esterase Negative , Urine RBC 1 - 3, Urine WBC 0 - 2, Ur Epithelial Cells 0 - 2, Urine Bacteria Mod 04/24/17 20:10: Sodium 139, Potassium 3.6, Chloride 105, Carbon Dioxide 25, Anion Gap 13, BUN 18, Creatinine 1.1, Est GFR ( Amer) > 60, Est GFR (Non- Af Amer) > 60, Random Glucose 84, Calcium 9.2, Total Bilirubin 0.3, AST 33, ALT 62 H, Alkaline Phosphatase 114, Total Protein 7.1, Albumin 3.7, Globulin 3.5, Albumin/Globulin Ratio 1.1, Lipase 33 04/24/17 20:10: WBC 9.4 D, RBC 5.11, Hgb 14.9, Hct 45.2, MCV 88.5, MCH 29.2, MCHC 33.0, RDW 13.7, Plt Count 312, MPV 10.9, Gran % 73.6 H, Lymph % (Auto) 15.2 L, [place] % (Auto) 8.8 H, Eos % (Auto) 2.2, Baso % (Auto) 0.2, Gran # 6.89 H , Lymph # 1.4, [place] # 0.8 H, Eos # 0.2, Baso # 0.02 - RAD Interpretation Narrative RAD Interpretations (Text): 04/24/17 21:44 Abd U/S: FINDINGS: Limitations: Examination is limited due to technique and patient body habitus. Liver: The liver is mildly echogenic. This can be seen in the setting of fatty infiltration, hepatitis, cirrhosis, as well as other possibilities, please correlate clinically. There is hepatomegaly. Gallbladder: The gallbladder is contracted. Evaluation is limited. There is no Chambers's sign. Common bile duct: The common bile duct measures 4 mm. No stones. No dilation. Pancreas: The pancreas is not adequately evaluated due to obscuring bowel gas. Kidneys: Left kidney 13.3 cm. Right kidney 12.7 cm. No stones. No hydronephrosis. Spleen: Unremarkable. No splenomegaly. IMPRESSION: 1. Examination is limited due to technique and patient body habitus. 2. The liver is mildly echogenic. This can be seen in the setting of fatty infiltration, hepatitis, cirrhosis, as well as other possibilities, please correlate clinically. 3. There is hepatomegaly. 4. The gallbladder is contracted. Evaluation is limited. There is no Chambers's sign. 04/24/17 23:05 CT A/P FINDINGS: Artifacts: Streak artifact degrades image quality. Motion artifact degrades image quality. Lower thorax: Heart size is normal. Lung bases are clear ABDOMEN: Liver: There is fatty infiltration liver. Gallbladder and bile ducts: unremarkable Pancreas: There is mild fatty infiltration of the pancreas. Spleen: unremarkable Adrenals: unremarkable Kidneys and ureters: There is a hyperdense lesion in the lower pole the left kidney difficult to further characterize. Right kidney is unremarkable.There is no pelvocaliectasis or ureterectasis. Stomach and bowel: Stomach is almost empty. Rotation is normal. There is no obstruction. Terminal ileum is unremarkable.Appendix is not visualized.There is no pericecal inflammation.Colon is incompletely distended which limits evaluation. Appendix: See above. PELVIS: Bladder: unremarkable Reproductive: Prostate is mildly enlarged. Seminal vesicles are unremarkable. ABDOMEN and PELVIS: Intraperitoneal space: There is no free air or free fluid. Bones/joints: There are degenerative changes in the osseus structures. Soft tissues: unremarkable Vasculature: There is minimal atherosclerotic calcification in the aorta and iliacs. Lymph nodes: There is no pathologic adenopathy. IMPRESSION: No renal or ureteral stones or hydronephrosis; indeterminate left hyperdense renal lesion; no acute solid visceral or bowel abnormality; slightly limited evaluation due to the patient's body habitus Radiology Orders: 04/24/17 20:29 ABD & PELVIS W/O PO OR IV CONT [CT] Stat ABDOMEN COMPLETE [US] Stat - EKG Interpretation Interpreted by ED Physician: Yes (NSR, rate 76, no ST elevation) Type: 12 lead EKG - Medication Orders Current Medication Orders: Discontinued Medications Ketorolac Tromethamine (Toradol) 30 mg IVP STAT STA Stop: 04/24/17 20:22 Last Admin: 04/24/17 20:47 Dose: 30 mg Disposition/Present on Arrival - Present on Arrival Any Indicators Present on Arrival: No History of DVT/PE: No History of Uncontrolled Diabetes: No Urinary Catheter: No History of Decub. Ulcer: No History Surgical Site Infection Following: None - Disposition Have Diagnosis and Disposition been Completed?: Yes Diagnosis: Abdominal pain Disposition Time: 22:50 Patient Plan: Discharge Patient Problems: Current Active Problems Problem Status Onset Abdominal pain Acute Condition: STABLE Discharge Instructions (ExitCare): Abdominal Pain (ED), Flank Pain (ED) Additional Instructions: Follow up with primary doctor within 1 week may take over the counter pain medications as needed return to the ED if symptoms worsen, Fever >100.4. Referrals: PCP,NO [Primary Care Provider] - Follow up with primary
[2017-04-24 21:00] LABS: URINE BILIRUBIN NEGATIVE (NEGATIVE); URINE BLOOD TRACE-INTACT (NEGATIVE); URINE GLUCOSE (UA) NEGATIVE (NEGATIVE); URINE KETONE TRACE mg/dL (NEGATIVE); URINE LEUKOCYTE ESTERASE NEGATIVE Leu/uL (NEGATIVE); URINE PROTEIN 30 mg/dL (<30 mg/dL); URINE UROBILINOGEN 0.2 E.U./dL (<1 E.U./dL)
[2017-04-24 21:02] LABS: ALB/GLOB RATIO 1.1 (1.1-1.8); ALKALINE PHOSPHATASE 114 U/L (38-133); ALT/SGPT 62 U/L (7-56); AST/SGOT 33 U/L (15-59); BILIRUBIN,TOTAL 0.3 mg/dL (0.2-1.3); BLOOD UREA NITROGEN 18 mg/dL (7-21); CALCIUM 9.2 mg/dL (8.4-10.5); CARBON DIOXIDE 25 mmol/L (21-33); CHLORIDE 105 mmol/L (98-107); GFR AFRICAN-AMERICAN > 60; GLUCOSE,RANDOM 84 mg/dL (70-110); LIPASE 33 U/L (23-300); POTASSIUM 3.6 mmol/L (3.6-5.0); SODIUM 139 mmol/L (132-148); TOTAL PROTEIN 7.1 g/dL (5.8-8.3)
[2017-04-24 21:05] LABS: URINE APPEARANCE CLEAR (CLEAR); URINE COLOR YELLOW (YELLOW)
[2017-04-24 21:09] LABS: URINE EPITHELIAL CELLS 0 - 2 /hpf (0-5); URINE WBC 0 - 2 /hpf (0-6)
[2017-04-24 21:10] LABS: URINE BACTERIA MOD (NEG)
[2017-04-24 21:18] VITALS: RESP 20
--- NOTE | 2017-04-24 21:42 | US ---
EXAM: US Abdomen Complete CLINICAL HISTORY: 47 years old, male; Pain; Abdominal pain; Epigastric; Additional info: Ruq pain TECHNIQUE: Real-time ultrasound of the abdomen (complete) with image documentation. COMPARISON: CT - ABD PELVIS IV CONTRAST ONLY 03/01/2017 1:06:57 AM FINDINGS: Limitations: Examination is limited due to technique and patient body habitus. Liver: The liver is mildly echogenic. This can be seen in the setting of fatty infiltration, hepatitis, cirrhosis, as well as other possibilities, please correlate clinically. There is hepatomegaly. Gallbladder: The gallbladder is contracted. Evaluation is limited. There is no Chambers's sign. Common bile duct: The common bile duct measures 4 mm. No stones. No dilation. Pancreas: The pancreas is not adequately evaluated due to obscuring bowel gas. Kidneys: Left kidney 13.3 cm. Right kidney 12.7 cm. No stones. No hydronephrosis. Spleen: Unremarkable. No splenomegaly. IMPRESSION: 1. Examination is limited due to technique and patient body habitus. 2. The liver is mildly echogenic. This can be seen in the setting of fatty infiltration, hepatitis, cirrhosis, as well as other possibilities, please correlate clinically. 3. There is hepatomegaly. 4. The gallbladder is contracted. Evaluation is limited. There is no Chambers's sign.
--- NOTE | 2017-04-24 23:04 | CT ---
EXAM: CT Abdomen and Pelvis Without Intravenous Contrast CLINICAL HISTORY: 47 years old, male; Pain; Abdominal pain; Localized; Right upper quadrant (ruq); Additional info: Ruq pain TECHNIQUE: Axial computed tomography images of the abdomen and pelvis without intravenous contrast. This CT exam was performed using one or more of the following dose reduction techniques: automated exposure control, adjustment of the mA and/or kV according to patient size, and/or use of iterative reconstruction technique. Coronal and sagittal reformatted images were created and reviewed. EXAM DATE/TIME: 04/24/2017 8:29 PM COMPARISON: CT - ABD PELVIS IV CONTRAST ONLY 03/01/2017 1:06:57 AM FINDINGS: Artifacts: Streak artifact degrades image quality. Motion artifact degrades image quality. Lower thorax: Heart size is normal. Lung bases are clear ABDOMEN: Liver: There is fatty infiltration liver. Gallbladder and bile ducts: unremarkable Pancreas: There is mild fatty infiltration of the pancreas. Spleen: unremarkable Adrenals: unremarkable Kidneys and ureters: There is a hyperdense lesion in the lower pole the left kidney difficult to further characterize. Right kidney is unremarkable.There is no pelvocaliectasis or ureterectasis. Stomach and bowel: Stomach is almost empty. Rotation is normal. There is no obstruction. Terminal ileum is unremarkable.Appendix is not visualized.There is no pericecal inflammation.Colon is incompletely distended which limits evaluation. Appendix: See above. PELVIS: Bladder: unremarkable Reproductive: Prostate is mildly enlarged. Seminal vesicles are unremarkable. ABDOMEN and PELVIS: Intraperitoneal space: There is no free air or free fluid. Bones/joints: There are degenerative changes in the osseus structures. Soft tissues: unremarkable Vasculature: There is minimal atherosclerotic calcification in the aorta and iliacs. Lymph nodes: There is no pathologic adenopathy. IMPRESSION: No renal or ureteral stones or hydronephrosis; indeterminate left hyperdense renal lesion; no acute solid visceral or bowel abnormality; slightly limited evaluation due to the patient's body habitus
[2017-04-24 23:33] VITALS: BP 133/79; PULSE 87; O2SAT 98
--- NOTE | 2017-04-25 16:11 | CARD ---
APPROVED REPORT EKG Measurement Heart [id number] <Conclusion> Normal sinus rhythm Normal ECG
== END 2017-04-24 23:32 | disposition home or self-care (01) ==
LOC: ED 19:01
DX: R10.11 Right upper quadrant pain (principal)
CPT/HCPCS: 74176; 76700; 80053; 81001; 82948; 83690; 85025; 93005; 96374; 99284; J1885